=== PATIENT | female | born 1960 | race American Indian/Alaskan Native ===

== ENCOUNTER 2020-03-18 15:36 | Emergency (ER) | payer MEDICAID, MEDICARE ==
--- NOTE | 2020-03-18 18:19 | Event Note ---
ED Screening Note ED Screening Note: pt presents with cough, fever, nausea, diarrhea, body aches, headache that began two days ago she went to a wedding and multiple people tested positive for COVID 19 no CP, no SOB pmhx CAD with stent placement, HTN, hypothyroidism +smoker This initial assessment/diagnostic orders/clinical plan/treatment(s) is/are subject to change based on patients health status, clinical progression and re- assessment by fellow clinical providers in the ED. Further treatment and workup at subsequent clinical providers discretion. Patient/guardian urged not to elope from the ED as their condition may be serious if not clinically assessed and managed. Initial orders include: labs, CXR contact droplet precautions for PUI
[2020-03-18 19:14] LABS: Calcium 9.3 mg/dL (8.4-10.2)
--- NOTE | 2020-03-18 19:25 | XRay Report ---
CHEST 1 VIEW INDICATION / CLINICAL INFORMATION: fever, nausea, diarrhea, cough. COMPARISON: None available. FINDINGS: SUPPORT DEVICES: None. HEART / MEDIASTINUM: No significant abnormality. LUNGS / PLEURA: No significant pulmonary or pleural abnormality. No pneumothorax. ADDITIONAL FINDINGS: No significant additional findings. IMPRESSION: No acute pulmonary or pleural abnormality Signer Name: Anton Pereira MD FACR Signed: 03/18/2020 7:21 PM Workstation Name: [id number]
[2020-03-18 19:41] LABS: Basophils % (Auto) 0.5 % (0.0-1.8); Eosinophils % (Auto) 0.1 % (0.0-4.3); Hematocrit 41.5 % (30.3-42.9); Hemoglobin 13.8 gm/dl (10.1-14.3); Lymphocytes # (Auto) 1.4 K/mm3 (1.2-5.4); Lymphocytes % (Auto) 14.8 % (13.4-35.0); Mean Corpuscular HGB Conc 33 % (30-34); Mean Corpuscular Volume 86 fl (79-97); Monocytes % (Auto) 10.6 % (0.0-7.3); Platelet Count 225 K/mm3 (140-440); Red Blood Count 4.82 M/mm3 (3.65-5.03); Red Cell Distribution Width 14.2 % (13.2-15.2)
[2020-03-19] MEDS ORDERED: ACETAMINOPHEN 325 MG TAB PO ONE (00:58)
--- NOTE | 2020-03-19 03:33 | Emergency Department Report ---
HPI - HPI HPI: Room 26 The patient is a 59-year-old female present with a chief complaint weakness and cough. The patient states she has been feeling weak for the past day or so. The patient states her family noticed her malaise and felt as though something was wrong because she is usually more energetic. The patient states she has had a cough productive of yellow sputum for the past 2 days and occasional lower abdominal pain. Patient states she is uncertain if she's had a fever. The patient states her daughter tested positive for COVID-19. When asked how she is feeling currently the patient states she just feels tired. <RIAN QUACH - Last Filed: 03/19/20 05:57> <LIAM MEI - Last Filed: 03/19/20 08:13> - General Chief Complaint: Abdominal Pain Time Seen by Provider: 03/18/20 18:17 ED Past Medical Hx - Past Medical History Previous Medical History?: Yes Hx Hypertension: Yes Hx Congestive Heart Failure: Yes - Surgical History Past Surgical History?: Yes Hx Coronary Stent: Yes - Family History Family history: no significant - Social History Smoking Status: Current Every Day Smoker (1/2 pack/day) Substance Use Type: None (Denies illicit drug use), Alcohol (Occasional) <RIAN QUACH - Last Filed: 03/19/20 05:57> <LIAM MEI - Last Filed: 03/19/20 08:13> - Medications Home Medications: Home Medications Medication Instructions Recorded Confirmed Last Taken Type Levothyroxine [Synthroid] 100 mcg PO QAM 05/13/13 05/13/13 05/13/13 History amLODIPine [Norvasc] 10 mg PO DAILY 05/13/13 05/13/13 05/13/13 History Benzonatate [Tessalon Perles] 100 mg PO Q8HR #30 capsule 03/19/20 Unknown Rx levoFLOXacin [Levaquin TAB] 500 mg PO QDAY #10 tablet 03/19/20 Unknown Rx ED Review of Systems ROS: Stated complaint: DEHYDRATION Other details as noted in HPI Constitutional: fever (?), malaise ENT: denies: throat pain Respiratory: cough. denies: shortness of breath Cardiovascular: denies: chest pain Endocrine: no symptoms reported Gastrointestinal: denies: nausea, vomiting Genitourinary: denies: dysuria Musculoskeletal: denies: back pain <WILLISRobRIAN Matilde - Last Filed: 03/19/20 05:57> ROS: Stated complaint: DEHYDRATION Other details as noted in HPI <LIAM MEI - Last Filed: 03/19/20 08:13> Physical Exam - Physical Exam Vital Signs: Vital Signs 03/18/20 03/19/20 16:25 00:19 Temperature 98.5 F 101.2 F H Pulse Rate 90 99 H Respiratory 14 18 Rate Blood Pressure 111/69 Blood Pressure 122/76 [Right] O2 Sat by Pulse 96 99 Oximetry Physical Exam: GENERAL: The patient is well-developed well-nourished female lying on stretcher not appearing to be in acute distress. [] HEENT: Normocephalic. Atraumatic. Extraocular motions are intact. Patient has moist mucous membranes. NECK: Supple. Trachea midline CHEST/LUNGS: Clear to auscultation. There is no respiratory distress noted. HEART/CARDIOVASCULAR: Regular. There is no tachycardia. There is no gallop rub or murmur. ABDOMEN: Abdomen is soft, nontender. Patient has normal bowel sounds. There is no abdominal distention. SKIN: There is no rash. There is no edema. There is no diaphoresis. NEURO: The patient is awake, alert, and oriented. The patient is cooperative. The patient has no focal neurologic deficits. The patient has normal speech. Cranial nerves II through XII grossly intact MUSCULOSKELETAL: There is no evidence of acute injury. <MAINRIAN Matilde - Last Filed: 03/19/20 05:57> - Physical Exam Vital Signs: Vital Signs 03/18/20 03/19/20 03/19/20 16:25 00:19 03:30 Temperature 98.5 F 101.2 F H 98.5 F Pulse Rate 90 99 H 72 Respiratory 14 18 14 Rate Blood Pressure 111/69 Blood Pressure 122/76 110/68 [Right] O2 Sat by Pulse 96 99 97 Oximetry 03/19/20 06:46 Temperature Pulse Rate Respiratory 14 Rate Blood Pressure Blood Pressure [Right] O2 Sat by Pulse 97 Oximetry <LIAM MEI - Last Filed: 03/19/20 08:13> ED Course Vital Signs 03/18/20 03/19/20 16:25 00:19 Temperature 98.5 F 101.2 F H Pulse Rate 90 99 H Respiratory 14 18 Rate Blood Pressure 111/69 Blood Pressure 122/76 [Right] O2 Sat by Pulse 96 99 Oximetry <RIAN QUACH - Last Filed: 03/19/20 05:57> Vital Signs 03/18/20 03/19/20 03/19/20 16:25 00:19 03:30 Temperature 98.5 F 101.2 F H 98.5 F Pulse Rate 90 99 H 72 Respiratory 14 18 14 Rate Blood Pressure 111/69 Blood Pressure 122/76 110/68 [Right] O2 Sat by Pulse 96 99 97 Oximetry 03/19/20 06:46 Temperature Pulse Rate Respiratory 14 Rate Blood Pressure Blood Pressure [Right] O2 Sat by Pulse 97 Oximetry - Reevaluation(s) Reevaluation #1: 03/19/20 08:12 Urinalysis reviewed and appreciated. Patient given IV fluids. Vital signs stable. Patient defervesced. Suspect COVID, possible superimposed bronchitis and/or UTI. <LIAM MEI - Last Filed: 03/19/20 08:13> ED Medical Decision Making - Lab Data Result diagrams: 03/18/20 18:32 03/18/20 18:32 - Radiology Data Radiology results: report reviewed (Chest x-ray), image reviewed (Chest x-ray) interpreted by me: Chest x-ray-no focal infiltrates, no pneumothorax [address] [address] XRay Report Signed Patient: KELVIN GAN MR#: [id number] : 1960 Acct:[id number] Age/Sex: 59 / F ADM Date: 03/18/20 Loc: ED Attending Dr: Ordering Physician: ARELIS ANTONIO Date of Service: 03/18/20 Procedure(s): XR chest routine 2V Accession Number(s): [id number] cc: ARELIS ANTONIO Fluoro Time In Minutes: CHEST 1 VIEW INDICATION / CLINICAL INFORMATION: fever, nausea, diarrhea, cough. COMPARISON: None available. FINDINGS: SUPPORT DEVICES: None. HEART / MEDIASTINUM: No significant abnormality. LUNGS / PLEURA: No significant pulmonary or pleural abnormality. No pneumothorax. ADDITIONAL FINDINGS: No significant additional findings. IMPRESSION: No acute pulmonary or pleural abnormality Signer Name: Anton Pereira MD FACR Signed: 03/18/2020 7:21 PM Workstation Name: [id number] Transcribed By: MS Dictated By: Anton Pereira MD Electronically Authenticated By: Anton Pereira MD Signed Date/Time: 03/18/201920 DD/ 19 TD/TT: - Medical Decision Making Patient's SPO2 remained at approximately 97% on room air after ambulation for 2 minutes. - Differential Diagnosis COVID-19, UTI, bronchitis <RIAN QUACH - Last Filed: 03/19/20 05:57> - Lab Data Result diagrams: 03/18/20 18:32 03/18/20 18:32 Vital Signs 03/18/20 03/19/20 03/19/20 16:25 00:19 03:30 Temperature 98.5 F 101.2 F H 98.5 F Pulse Rate 90 99 H 72 Respiratory 14 18 14 Rate Blood Pressure 111/69 Blood Pressure 122/76 110/68 [Right] O2 Sat by Pulse 96 99 97 Oximetry 03/19/20 06:46 Temperature Pulse Rate Respiratory 14 Rate Blood Pressure Blood Pressure [Right] O2 Sat by Pulse 97 Oximetry Lab Results 03/18/20 03/18/20 03/19/20 Range/Units 18:32 18:32 06:25 WBC 9.2 (4.5-11.0) K/mm3 RBC 4.82 (3.65-5.03) M/mm3 Hgb 13.8 (10.1-14.3) gm/dl Hct 41.5 (30.3-42.9) % MCV 86 (79-97) fl MCH 29 (28-32) pg MCHC 33 (30-34) % RDW 14.2 (13.2-15.2) % Plt Count 225 (140-440) K/mm3 Lymph % (Auto) 14.8 (13.4-35.0) % [place] % (Auto) 10.6 H (0.0-7.3) % Eos % (Auto) 0.1 (0.0-4.3) % Baso % (Auto) 0.5 (0.0-1.8) % Lymph # 1.4 (1.2-5.4) K/mm3 [place] # 1.0 H (0.0-0.8) K/mm3 Eos # 0.0 (0.0-0.4) K/mm3 Baso # 0.0 (0.0-0.1) K/mm3 Seg Neutrophils % 74.0 H (40.0-70.0) % Seg Neutrophils # 6.8 (1.8-7.7) K/mm3 Sodium 127 L (137-145) mmol/L Potassium 3.5 L (3.6-5.0) mmol/L Chloride 89.1 L (98-107) mmol/L Carbon Dioxide 23 (22-30) mmol/L Anion Gap 18 mmol/L BUN 14 (7-17) mg/dL Creatinine 1.2 (0.7-1.2) mg/dL Estimated GFR 55 ml/min BUN/Creatinine Ratio 12 % Glucose 102 H (65-100) mg/dL Calcium 9.3 (8.4-10.2) mg/dL Total Bilirubin 0.40 (0.1-1.2) mg/dL AST 18 (5-40) units/L ALT 7 (7-56) units/L Alkaline Phosphatase 63 (35-129) units/L Total Protein 7.6 (6.3-8.2) g/dL Albumin 4.0 (3.9-5) g/dL Albumin/Globulin Ratio 1.1 % Lipase 27 (13-60) units/L Urine Color Yellow (Yellow) Urine Turbidity Hazy (Clear) Urine pH 5.0 (5.0-7.0) Ur Specific [place] 1.015 (1.003-1.030) Urine Protein 30 mg/dl (Negative) mg/dL Urine Glucose (UA) Neg (Negative) mg/dL Urine Ketones Neg (Negative) mg/dL Urine Blood Neg (Negative) Urine Nitrite Neg (Negative) Urine Bilirubin Neg (Negative) Urine Urobilinogen < 2.0 (<2.0) mg/dL Ur Leukocyte Esterase Sm (Negative) Urine WBC (Auto) 8.0 H (0.0-6.0) /HPF Urine RBC (Auto) 6.0 (0.0-6.0) /HPF U Epithel Cells (Auto) 6.0 (0-13.0) /HPF Hyaline Casts 1 /LPF Urine Mucus Few /HPF - Radiology Data Radiology results: report reviewed, image reviewed <LIAM MEI - Last Filed: 03/19/20 08:13> Critical care attestation.: If time is entered above; I have spent that time in minutes in the direct care of this critically ill patient, excluding procedure time. <RIAN QUACH Matilde - Last Filed: 03/19/20 05:57> Critical care attestation.: If time is entered above; I have spent that time in minutes in the direct care of this critically ill patient, excluding procedure time. <PORFIRIOMICKLIAM - Last Filed: 03/19/20 08:13> ED Disposition <RIAN QUACH - Last Filed: 03/19/20 05:57> Is pt being admited?: No Does the pt Need Aspirin: No <LIAM MEI - Last Filed: 03/19/20 08:13> Clinical Impression: Acute bronchitis, Suspected COVID-19 virus infection Disposition: - TO HOME OR SELFCARE Condition: Stable Instructions: Acute Bronchitis (ED), Abdominal Pain (ED) Additional Instructions: Return to the emergency department should you develop worsening symptoms, inability to tolerate food or liquids, high fever or any other concerns Prescriptions: levoFLOXacin [Levaquin TAB] 500 mg PO QDAY #10 tablet Benzonatate [Tessalon Perles] 100 mg PO Q8HR #30 capsule Referrals: PRIMARY CARE, [Primary Care Provider] - 3-5 Days
[2020-03-19] MEDS ORDERED: SODIUM CHLORIDE 0.9% 1000 ML 1,000 ML IV ONE (05:56)
[2020-03-19 06:45] VITALS: BP 110/68
[2020-03-19 07:12] LABS: Bilirubin,Urine NEG (Negative); Blood,Urine NEG (Negative); Color,Urine Yellow (Yellow); Hyaline Casts,Urine 1 /LPF; Mucus,Urine FEW /HPF; Urobilinogen,Urine < 2.0 mg/dL (<2.0)
== END 2020-03-19 08:36 | disposition home or self-care (01) ==
LOC: ED 15:36
DX: J20.9 Acute bronchitis, unspecified (principal); Z20.828 Contact with and (suspected) exposure to other viral communicable diseases; R19.7 Diarrhea, unspecified; I11.0 Hypertensive heart disease with heart failure; I50.9 Heart failure, unspecified; F17.200 Nicotine dependence, unspecified, uncomplicated; Z98.890 Other specified postprocedural states; Z79.899 Other long term (current) drug therapy; Z88.8 Allergy status to other drugs, medicaments and biological substances
CPT/HCPCS: 36415; 71046; 80053; 81001; 83690; 85025; 96360; 99284; J7030